=== PATIENT | male | born 1985 | race African-American/Black ===

== ENCOUNTER 2022-06-23 23:37 | Emergency (ER) | payer MEDICARE, MEDICAID, SELFPAY ==
[2022-06-23 23:39] VITALS: BP 112/79; PULSE 117; RESP 16; TEMP 37.4; O2SAT 99
[2022-06-24 00:31] LABS: Basophils Percent Auto 0.2 % (0.2-1.2); Eosinophils Percent Auto 0.2 % (0-4.4); Immature Granulocyte Absolute 0.05 K/mm3 (0.00-0.031); Immature Granulocyte Percent A 0.4 % (0-0.5); Lymphocytes Absolute Auto 2.26 K/mm3 (0.9-3.2); Lymphocytes Percent Auto 18.8 % (18.3-44.2); Mean Corpuscular HGB Conc 33.3 g/dl (32-36); Mean Corpuscular Hemoglobin 28.6 pg (26-34); Mean Corpuscular Volume 85.7 fl (80-100); Mean Platelet Volume 8.3 fl (7.4-10.4); Monocytes Percent Auto 7.9 % (2.6-8.5); Neutrophils Absolute Auto 8.7 K/mm3 (1.3-6.7); Neutrophils Percent Auto 72.5 % (45.5-73.1); Platelet Count Result 364 k/mm3 (150-375)
[2022-06-24 00:32] LABS: Acetaminophen < 10 ug/mL (10-30); Ethanol < 10 mg/dL (<10); Salicylate < 1.0 mg/dL (2-20)
[2022-06-24 00:33] LABS: Alanine Aminotransferase 20 U/L (6-50); Albumin Level 4.4 g/dL (3.5-5.1); Alkaline Phosphatase 67 U/L (38-126); Anion Gap 6 mmol/L (8-16); Aspartate Amino Transferase 32 U/L (17-59); Bilirubin,Total 0.9 mg/dL (0.2-1.3); Blood Urea Nitrogen 10 mg/dL (9-20); Calcium 8.9 mg/dL (8.4-10.2); Carbon Dioxide 29 mmol/L (22-30); Chloride 101 mmol/L (98-107); Estimated CRCL calculation 124 ml/min; Estimated Glomerular Filt Rate > 60; Glucose 132 mg/dL (65-110); Potassium 3.1 mmol/L (3.4-5.0); Sodium 136 mmol/L (137-145)
[2022-06-24 01:03] LABS: Influenza A QL RT-PCR Negative (Negative); Influenza B QL RT-PCR Negative (Negative); RSV RNA, RT-PCR Negative (Negative); SARS-CoV-2 RNA PCR Negative
[2022-06-24 01:30] LABS: Appearance Urine Clear (Clear); Bilirubin Urine 2+ (Negative); Blood Urine 2+ (Negative); Color Urine Yellow (Yellow); Glucose Urine UA Negative (Negative); Ketones Urine 3+ mg/dL (Negative); Leukocyte Esterase Ur Negative LEU/UL (Negative); Nitrate Urine Negative (Negative); Protein Urine 1+ mg/dL (Negative); Specific Grav Ur >= 1.030 (1.001-1.035); Urobilinogen Urine >=8.0 mg/dL (<2.0); pH Urine 5.5 (5.0-9.0)
[2022-06-24 01:33] LABS: Mucus Urine Heavy /lpf; RBC Urine 51-75 /hpf (0-2); Squamous Epithelial Cell Urine Rare /hpf (Few)
[2022-06-24 01:35] LABS: Add Urine Microscopic? YES
[2022-06-24 01:49] LABS: Amphetamine Screen Urine Negative (Negative); Barbiturate Screen Urine Negative (Negative); Benzodiazepines Screen Urine Negative (Negative); Cannabinoid Screen Urine Positive (Negative); Cocaine Screen Urine Positive (Negative); Methadone Screen Urine Negative (Negative); Opiate Screen Urine Negative (Negative); Phencyclidine Screen Urine Negative (Negative)
[2022-06-24 02:33] VITALS: BP 126/92; PULSE 112; RESP 14; TEMP 36.6; O2SAT 97
--- NOTE | 2022-06-24 03:27 | PC.NURSE ---
Per ERP pt. is medically clear.
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
[2022-06-24] MEDS: CEPHALEXIN 500 MG CAPSULE PO (05:17)
[2022-06-24] MEDS: POTASSIUM CHLORIDE 20 MEQ TABLET 40 MEQ PO (05:17)
[2022-06-24 07:15] VITALS: BP 138/102; PULSE 98; RESP 18; O2SAT 97
--- NOTE | 2022-06-24 08:21 | PC.NURSE ---
This RN informed by security that pt was walking out of building. He states that he attempted to get pt to stay but he states he wanted to go. Pt is voluntary and is not SI. Pt saw walking out towards bus stop.
== END 2022-06-24 08:23 | disposition home or self-care (01) ==
PROVIDERS: Physician Assistant; Emergency Provider Emergency Medicine
DX: F20.9 Schizophrenia, unspecified (principal); Z20.822 Contact with and (suspected) exposure to COVID-19; F31.9 Bipolar disorder, unspecified
CPT/HCPCS: 36415; 80053; 80307; 81001; 84443; 85025; 87637; 99283; 99284; A9270

== ENCOUNTER 2022-06-25 07:29 | Emergency (ER) | payer MEDICARE, MEDICAID, SELFPAY ==
[2022-06-25 07:32] VITALS: BP 121/73; PULSE 97; RESP 16; TEMP 36.7; O2SAT 99
[2022-06-25 08:19] LABS: Basophils Percent Auto 0.4 % (0.2-1.2); Eosinophils Percent Auto 0.4 % (0-4.4); Hemoglobin 14.1 g/dL (14.0-18.0); Immature Granulocyte Absolute 0.03 K/mm3 (0.00-0.031); Immature Granulocyte Percent A 0.4 % (0-0.5); Lymphocytes Absolute Auto 2.02 K/mm3 (0.9-3.2); Lymphocytes Percent Auto 23.9 % (18.3-44.2); Mean Corpuscular HGB Conc 33.6 g/dl (32-36); Mean Corpuscular Hemoglobin 28.9 pg (26-34); Mean Corpuscular Volume 86.1 fl (80-100); Mean Platelet Volume 8.1 fl (7.4-10.4); Monocytes Absolute Auto 0.6 K/mm3 (0.1-0.6); Monocytes Percent Auto 7.2 % (2.6-8.5); Neutrophils Absolute Auto 5.7 K/mm3 (1.3-6.7); Neutrophils Percent Auto 67.7 % (45.5-73.1); Platelet Count Result 337 k/mm3 (150-375); Red Blood Count 4.88 M/mm3 (4.6-6.20); White Blood Count 8.5 K/mm3 (4.5-10.0)
[2022-06-25 08:40] LABS: Appearance Urine Clear (Clear); Bacteria Urine None Seen /hpf; Bilirubin Urine 2+ (Negative); Blood Urine 2+ (Negative); Color Urine Dark Yellow (Yellow); Glucose Urine UA Negative (Negative); Ketones Urine 3+ mg/dL (Negative); Leukocyte Esterase Ur Negative LEU/UL (Negative); Nitrate Urine Negative (Negative); Protein Urine 1+ mg/dL (Negative); RBC Urine 21-50 /hpf (0-2); Squamous Epithelial Cell Urine None seen /hpf (Few); WBC Urine 0-5 /hpf; pH Urine 5.5 (5.0-9.0)
[2022-06-25 08:42] LABS: Alanine Aminotransferase 20 U/L (6-50); Albumin Level 4.5 g/dL (3.5-5.1); Alkaline Phosphatase 71 U/L (38-126); Anion Gap 9 mmol/L (8-16); Aspartate Amino Transferase 30 U/L (17-59); Bilirubin,Total 1.3 mg/dL (0.2-1.3); Blood Urea Nitrogen 16 mg/dL (9-20); Calcium 8.7 mg/dL (8.4-10.2); Carbon Dioxide 27 mmol/L (22-30); Chloride 106 mmol/L (98-107); Estimated CRCL calculation 124 ml/min; Estimated Glomerular Filt Rate > 60; Glucose 122 mg/dL (65-110); Potassium 3.8 mmol/L (3.4-5.0); Sodium 142 mmol/L (137-145)
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
[2022-06-25 08:56] LABS: Add Urine Microscopic? YES
[2022-06-25] MEDS: SODIUM CHLORIDE 0.9% IV 1,000 ML 999 ML IV CONT (09:00)
[2022-06-25 09:12] LABS: Thyroid Stimulating Hormone 0.708 uIU/mL (0.465-4.680)
[2022-06-25 09:36] LABS: Ethanol < 10 mg/dL (<10)
--- NOTE | 2022-06-25 10:20 | PC.NURSE ---
lab contacted about missing uds. states was having difficulty with their machine.
[2022-06-25 10:22] LABS: Influenza A QL RT-PCR Negative (Negative); Influenza B QL RT-PCR Negative (Negative); SARS-CoV-2 RNA PCR Negative
--- NOTE | 2022-06-25 10:30 | PC.NURSE ---
pharmacy contacted about ceftin. states still have to package med.
[2022-06-25 10:32] LABS: Barbiturate Screen Urine Negative (Negative); Benzodiazepines Screen Urine Negative (Negative)
[2022-06-25 10:36] LABS: Cannabinoid Screen Urine Positive (Negative); Cocaine Screen Urine Positive (Negative); Methadone Screen Urine Negative (Negative); Opiate Screen Urine Negative (Negative); Phencyclidine Screen Urine Negative (Negative)
--- NOTE | 2022-06-25 11:14 | PC.NURSE ---
Medications not given due to patient sleeping.
[2022-06-25] MEDS: CEFUROXIME AXETIL 250 MG TABLET 500 MG PO (12:58)
[2022-06-25] MEDS: TETANUS,DIPHTHERIA,AC PERTUSSIS ADULT (0.5 ML) BOOSTRIX IM (12:58)
[2022-06-25 13:00] VITALS: BP 125/82; PULSE 92; RESP 16; O2SAT 96
--- NOTE | 2022-06-25 13:28 | PC.NURSE ---
Spoke with Destini from [place] and she states Dr Valentin has accepted patient. She states she is to call back with room assignment. Provider made aware.
--- NOTE | 2022-06-25 13:32 | ECG_ITS ---
Measurements Intervals [place] Rate: 83 P: 59 [place]: 138 QRS: 71 QRSD: 90 T: 49 QT: 354 QTc: 417 Interpretive Statements SINUS RHYTHM MINIMAL Q WAVES- ANTEROLAT/INF LEADS BASELINE WANDER- V4 BORDERLINE ECG NO PREVIOUS ECG AVAILABLE FOR COMPARISON Electronically Signed On 06-25-2022 13:57:13 EQUAL OPPORTUNITY REPRESENTATIVE by Jc Phillips D.O.
[2022-06-25 15:44] LABS: Amphetamine Screen Urine Negative (Negative)
== END 2022-06-25 17:30 ==
PROVIDERS: Emergency Provider Emergency Medicine
DX: R45.851 Suicidal ideations (principal); R44.0 Auditory hallucinations; Z23 Encounter for immunization; S61.012A Laceration without foreign body of left thumb without damage to nail, initial encounter; Z20.822 Contact with and (suspected) exposure to COVID-19; W26.0XXA Contact with knife, initial encounter
CPT/HCPCS: 36415; 80053; 80307; 81001; 84443; 85025; 87636; 90471; 90714; 90715; 93005; 96360; 99285; A9270; J7030

== ENCOUNTER 2022-06-30 00:27 | Emergency (ER) | payer MEDICARE, MEDICAID, SELFPAY ==
[2022-06-30 00:33] VITALS: BP 138/99; PULSE 106; RESP 19; TEMP 36.9; O2SAT 98
[2022-06-30 01:34] VITALS: BP 141/87; PULSE 93; RESP 18; O2SAT 100
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
[2022-06-30] MEDS: CEPHALEXIN 500 MG CAPSULE PO (03:04)
[2022-06-30] MEDS: BACITRACIN OINTMENT 15 GM TUBE 1 APPLIC TOPICAL (03:04)
--- NOTE | 2022-06-30 03:13 | PC.NURSE ---
Bacitracin applied to bilateral thumbs and right middle finger. Gauze applied and wrapped with kerlix. Supplies given to pt so he can perform dressing changes at home.
--- NOTE | 2022-06-30 03:45 | PC.NURSE ---
Pt asked for cab voucher to take him to a penitentiary in [place]. Informed him that we can send him to the penitentiary, but it's not guaranteed that he will be able to get in tonight. Pt then states he wants to go to a store in [facility]. Informed him that he cannot use a cab voucher to go to a liquor store. Pt then asked to go to [facility] [place]. Informed pt that we cannot send him to another healthcare facility. Had pt wait in waiting room and if he thinks of an actual address he can safely go to, to let the front end software developer know. Pt verbalized understanding. Pt ambulated to waiting room with steady gait.
== END 2022-06-30 03:48 | disposition home or self-care (01) ==
PROVIDERS: Emergency Provider Emergency Medicine; PCP Family Medicine
DX: T23.012A Burn of unspecified degree of left thumb (nail), initial encounter (principal); T23.011A Burn of unspecified degree of right thumb (nail), initial encounter; T31.0 Burns involving less than 10% of body surface; X15.0XXA Contact with hot stove (kitchen), initial encounter; Z59.00 Homelessness unspecified
CPT/HCPCS: 99283; A4565; A9270

== ENCOUNTER 2024-07-15 14:01 | Emergency (ER) | payer MEDICARE, MEDICAID, SELFPAY ==
[2024-07-15 14:38] VITALS: BP 91/43; PULSE 88; RESP 16; TEMP 36.6; O2SAT 100
--- NOTE | 2024-07-15 15:01 | ECG_ITS ---
Test Date: 2024-07-15 15:08:35 Measurements Intervals [place] Rate: 84 P: 66 MO: 137 QRS: 74 QRSD: 79 T: 55 QT: 362 QTc: 428 Interpretive Statements SINUS RHYTHM No previous ECG available for comparison Electronically Signed On 07-16-2024 10:44:02 CDT by Gonzalez Holguin M.D.
--- OUTSIDE RECORDS SUMMARY | 2024-07-15 15:17 | XMS_ITS | Encounter Summary ---
Author Organization [facility] Address [address] [place] [address] Care Team Providers Care Orthopedic Physician Assistant Name Role Phone No, Physician Primary Care Provider [phone] Encounter Details Date Type Department Care Team (Late st Contact Info) Description 12/04/2011 Orders Only [facility] [place] Health Information Management [address] [place] [address] Scanning, Provider Social History Tobacco Use Types Packs/Day Years Used Date Smoking Tobacco: Never Assessed Sex and Gender Information Value Date Recorded Sex Assigned at Not on file Legal Sex Male 1:40 PM CDT Gender Identity Not on file Sexual Orientation Not on file documented as of this encounter Plan of Treatment Not on file documented as of this encounter Procedures Procedure Name Priority Date/Time Associated Diagnosis Comments SCAN - RADIOLOGY/IMAGING 12/04/2011 documented in this encounter Results * SCAN - RADIOLOGY/IMAGING (12/04/2011) Anatomical Region Laterality Modality Other us Provider Scanning Final Result documented in this encounter Visit Diagnoses Not on filedocumented in this encounter Additional Health Concerns Infection Onset Date Last Indicated Resolved Time COVID19 03/20/2022 03/20/2022 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
--- OUTSIDE RECORDS SUMMARY | 2024-07-15 15:17 | XMS_ITS | Patient Health Record ---
Author Organization Formerly [facility], [facility] Address [address] [place] [address] Care Team Providers Care Batch Unit Treater Name Role Phone Jessydimitriosjorge Claire Primary Care Provider [phone] Heena Lott Unavailable [phone] Hanna Belcher Unavailable [phone] Joaquin Singletary Unavailable [phone] Luna Wooten Unavailable [phone] Shawnee Clarke Unavailable [phone] Allergies Allergen (clinical drug ingredient) Drug/Non Drug Allergy documented on EMR Reaction Allergy Type Onset Date Status Substance with sulfonamide structure and antibacterial mechanism of action (substance) Sulfa (uncoded) rash Allergy Active Sulfur hives, swelling Drug Allergy A ctive Reason For Referral No Information Medications Medication SIG (Take, Route, Frequency, Duration) Notes Start Date End Date Status Abilify 15 MG 1 tablet Orally Once a day for 30 days Active Benztropine Mesylate 1 mg TAKE 1 TABLET BY MOUTH AT BEDTIME for 30 days Active Nicotine Polacrilex 4 MG 1 piece chew fo r 30 minutes as needed Mouth/Throat every 8 hrs Active Social History Tobacco Use: Social History Observation Description Date Details (start date - stop date) Current Smoker NA - NA Sex Assigned At : Social History Observation Description Sex Assigned At Male Dont use, Tobacco Use/Smoking Question Answer Notes Are you a current smoker Are you a current smoker Alcohol Screen (Audit-C) Question Answer Notes Did you have a drink containing alcohol in the p ast year? Yes PRAPARE Question Answer Notes Date Completed/Updated: 12/04/2023 What is your current housing situation? I have h ousing Are you worried about losing your housing? No What is the highest level of school that you have finished? Less than a high school degree 8th Grade What is your current work situation? Oth erwise unemployed but not seeking work (ex. student, retired, disabled, unpaid primary property caretaker) In the past year, have you o r any family members you live with been unable to get any of the following when it was really needed? Check all that apply I do not have problems meeting my needs Has lack of transportation k ept you from medical appointments, meetings, work or from getting things needed for daily living? No How often do you see or talk to people that you care about and feel close to? (For example: talking to friends on the phone, visiting friends or family, going to hindu or club meetings) 3 to 5 times a week How stressed are you? Stress is when someone feels tense, nervous, anxious, or can\t sleep at night because their mind is troubled A little bit In the past year have you sp ent more than 2 nights in a row in a residential, care home, half-way center, or juvenile correctional facility? No Are you a refugee? No What country are you from? [place] Do you feel physically and e motionally safe where you currently live? Yes In the past year, have you b een afraid of your partner or ex-partner? No PRAPARE Score: 6 Tobacco Control (Standard) Question Answer Notes Tobacco use: Current every day smoker Additional Findings: Tobacco user e-ciga rette,Light cigarette smoker (1-9 cigs/day) Section Notes: pt states he has been clean for 11 years. pt states he has been clean for 11 years. pt states he has been clean for 11 years. pt states he has been clean for 11 years. pt states he has been clean for 11 years. pt states he has been clean for 11 years. pt states he has been clean for 11 years. pt states he has been clean for 11 years. pt states he has been clean for 11 years. pt states he has been clean for 11 years. pt states he has been clean for 11 years. pt states he has been clean for 11 years. pt states he has been clean for 11 years. pt states he has been clean for 11 years. pt states he has been clean for 11 years. pt states he has been clean for 11 years. Problems Problem Type SNOMED Code ICD Code Onset Dates Problem Status W/U Status Risk Notes Problem Vitamin D deficiency (07259472) Vitamin D deficiency, unspecified (E55.9) Active confirmed Problem Tobacco user (306405338) Nicotine dependence, unspecified, uncomplicated (F17.200) Active confirmed Problem Anxiety (55324284) Anxiety (F41.9) Active confi rmed Problem Schizoaffective disorder (85021623) Schizoaffective disorder (F25.9) Active confirmed Problem Tobacco use (006096077) Tobacco use disorder (F17.200) Active confirmed Vital Signs Heart Rate 73 /min 12/05/2023 Respiratory Rate 16 /min 12/05/2023 Blood pressure diastolic 82 mm Hg 12/05/2023 Oximetry 98 % 12/05/2023 Height 69 in 12/05/2023 Blood pressure systolic 122 mm Hg 12/05/2023 Weight 197 lb 2 oz lbs 12/05/2023 BMI 29.11 kg/m2 12/05/2023 Encounters Encounter Location Date Provider Diagnosis Formerly [facility] [place] [address] 12/09/2023 Hanna Belcher Routine physical examination Z00.[address] [place] [address] 10/11/2023 Luna Wooten Schizoaffective disorder F25.9 Formerly [facility] [place] [address] 11/06/2023 Joaquin Singletary Routine physical examination Z00.00 ; Overweight E66.3 ; Nutritional counseling Z71.3 and Nicotine dependence, unspecified, uncomplicated F17.200 [facility] [address] [address] 11/06/2023 Shawnee Clarke [facility] [address] [facility] [place] [address] 12/04/2023 Joaquin Singletary Closed head injury, initial encounter S09.90XA ; Overweight (BMI 25.0-29.9) E66.3 ; Nutritional counseling Z71.3 and Nicotine dependence, unspecified, uncomplicated F17.200 [facility] [address] [place] [address] 12/04/2023 Shawnee Clarke [address] [place] [address] 12/05/2023 Hanna Belcher Routine physical examination Z00.00 ; Overweight (BMI 25.0-29.9) E66.3 and Tobacco use disorder F17.200 [facility] [address] [facility] [place] [address] 12/06/2023 Hanna Belcher Routine physical examination Z00.00 Assessments Encounter Date Diagnosis (ICD Code) Assessment Notes Treatment Notes Treatment Clinical Notes Section Notes 10/11/2023 Schizoaffective disorder (ICD-10 - F25.9) Continue current medications. Continue services as scheduled. Labs completed recently. May self-administer medications or be administered own oral medications per [place] protocols. Provided informed consent with understanding of side effects, adverse effects, risks and benefits as well as alternative treatments as previously discussed and with the above recommended medications & other aspects of the treatment program. Agrees to return sooner if symptoms worsen or suicidal or homicidal ideations occur. 11/06/2023 Overweight (ICD-10 - E66.3) 11/06/2023 Routine physical examination (ICD-10 - Z00.00) No issues or concerns at this time, continue current treatments, f/u in 6 months. 12/04/2023 Overweight (BMI 25.0-29.9) (ICD-10 - E66.3) 12/04/2023 Closed head injury, initial encounter (ICD-10 - S09.90XA) Follow up if any further symptoms arise. 12/05/2023 Routine physical examination (ICD-10 - Z00.00) Continue CRU protocol. Encouraged regular f/u with PCP for recommended physicals and screenings. 12/05/2023 Overweight (BMI 25.0-29.9) (ICD-10 - E66.3) 12/06/2023 Routine physical examination (ICD-10 - Z00.00) 12/09/2023 Routine physical examination (ICD-10 - Z00.00) 12/05/2023 Tobacco use disorder (ICD-10 - F17.200) 12/04/2023 Nutritional counseling (ICD-10 - Z71.3) 11/06/2023 Nutritional counseling (ICD-10 - Z71.3) 12/04/2023 Nicotine dependence, unspecified, uncomplicated (ICD-10 - F17.200) 11/06/2023 Nicotine dependence, unspecified, uncomplicated (ICD-10 - F17.200) 11/06/2023 Other Provided case management services to address social determinants of health needs and reduce barriers to health care services. 12/04/2023 Other Provided case management services to address social determinants of health needs and reduce barriers to health care services. Plan Of Treatment Pending Test Test Name Order Date Xray : Hip, left 07/31/2018 Xray : LS Spine 07/31/2018 Insurance Providers Payer Name Payer Address Payer Phone Subscriber Number Group Number Insured Name Patient Relationship to Insured Coverage Start Date Coverage End Date [employer] [address] [place] [address] [id number] Jaden Calderón Self - patient is the insured 3 3 MEDICAID [address] [place] [address] [id number] Jaden Calderón Self - patient is the insured 9 3 Medications Administered Medication Instructions Date of Administration Dosage Notes Tejinder Dale 07/25/2017 400 mg [facility] Medical (General) History Medical History History ICD Code Schizophrenia Surgical History Surgery Date(Month/Year) hemmoroids 2014 hemorrhoidectomy 2014 Hospitalization History Reason Date(Month/Year) [facility] 2018 mental health 2022 [facility]
--- OUTSIDE RECORDS SUMMARY | 2024-07-15 15:17 | XMS_ITS | CONTINUITY OF CARE DOCUMENT ---
Author Name lawrence bravo Address Unknown Organization [facility] Address [address] [place] [address] Phone [phone] Care Team Providers Care Enamel Sprayer Name Role Phone Carlos Oquendo MD Unavailable Carlos Oquendo MD Unavailable [phone] INSURANCE PROVIDERS Payer name Policy type / Coverage type Grayson red republican [employer] Medicaid 1 [id number] [place] MED[place]ARE Medicare [id number]
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
--- OUTSIDE RECORDS SUMMARY | 2024-07-15 15:17 | XMS_ITS | Referral Summary ---
Author Organization [facility] Address [address] [place] [address] Care Team Providers Care Authorizer Name Role Phone No, Physician Primary Care Provider [phone] Allergies Active Allergy Reactions Criticality Noted Date [...] interested in rehab or substance use resources. -[place] for substance use cessation -Rehab and other [...] on the patient and his wellbeing. Offered assisted to patient but he declined. He did not have any evidence of AVH/RTIS. Did not endorse SI/HI. He is future planning, has history of help seeking and self preservation, and has no thought disorder. He is being discharged to a detention with resources for substance use and grief counseling. -Monitor off psychotropic medications -PRN Zyprexa -Legal: Voluntary - Discharge to detention Resolved Problems Problem Noted Date Diagnosed Date Resolved Date Schizophrenia, chronic condition 07/18/2022 07/19/2022 Social History Tobacco Use Types Packs/Day Years [...] often do you attend chur ch or anglican services? Never 07/19/2022 Do you belong to any clubs o r organizations such as restorationism groups, unions, fraternal or athletic groups, or [...] medical care, and heating? Somewhat hard 07/19/2022 [facility] - Occupational Stress Questionnaire Answer Date Recorded [...] place to sleep or slept in a detention (including now)? Yes 07/19/2022 Personal Safety Answer [...] on file Sexual Orientation Not on file Last Filed Vital Signs Vital Sign Reading [...] Mass Index 29.53 09/14/2023 12:42 PM CDT Functional Status * Are you deaf or do you have serious difficulty hearing? Answer Date of Assessment Author No 07/19/2022 12:52 PM CDT Aissatou Magdaleno MSW * Are you blind or do you have serious difficulty seeing, even when wearing glasses? Answer Date of Assessment Author No 07/19/2022 12:52 PM CDT Aissatou Magdaleno MSW * Do you have serious difficulty walking or climbing stairs? Answer Date of Assessment Author No 07/19/2022 12:52 PM CDT Aissatou Magdaleno MSW * Do you have serious difficulty dressing or bathing? Answer Date of Assessment Author No 07/19/2022 12:52 PM CDT Aissatou Magdaleno MSW * Because of a physical, mental, or emotional condition, do you have serious difficulty doing errandsalone such as visiting the doctor? Answer Date of Assessment Author No 07/19/2022 12:52 PM CDT Aissatou Magdaleno MSW Mental Status * Because of a physical, mental, or emotional condition, do you have serious difficulty concentrating, remembering, or making decisions? (5 years old or older) Answer Entry Date Author Yes 07/19/2022 12:52 PM CDAissatou Lopez MSW Plan of Treatment Not on file Insurance IDPA CIGNA MEDICARE ADV MEDICARE IDPA IDNH CIGNA MEDICARE ADV Advance Directives For more information, please contact: [phone] * Full Code (Latest Code Status on File) Date Activated Date Inactivated Comments 07/19/2022 4:05 AM 07/19/2022 6:11 PM Care Teams Authorizer Relationship Specialty Start Date End Date No, Physician PCP - General 10/02/17
--- OUTSIDE RECORDS SUMMARY | 2024-07-15 15:17 | XMS_ITS ---
Author Organization [facility] Address [address] [place] [address] Care Team Providers Care Cartoon Animator Name Role Phone Claire Chatterjee Primary Care Provider [phone] Heena Lott Unavailable [phone] Luna Wooten Unavailable [phone] REASON FOR VISIT 2 month follow up Social History Sex Assigned At : Social History Observation Description Sex Assigned At Male Encounters Encounter Location Date Provider Diagnosis [address] [place] [address] 12/12/2023 Luna Wooten Plan Of Treatment No Information Progress Notes * Jaden CALDERÓNDOB: [birth year] (39 yo M)Acc No.[id number]:12/12/2023 UNLOCKED PROGRESS NOTE Patient: Jaden GARCIA Provider: Luis Wooten DNP, PMHNP-KONSTANTIN, BONDING MACHINE SETTER :1985 A ge:38 Y S ex:Male Date:12/12/2023 Phone: Address:[address] [place], [address], [place], [place] Pcp:Claire Chatterjee Subjective: * Chief Complaints: * 1 . 2 month follow up. * Medical History: Objective: * Vitals: Assessment: Plan: * Treatment: * * Electronic signature of Sandrine Wooten on 07/15/2024 at 03:17 PM CDT Sign off status: Pending * Provider: Luis Wooten DNP, PMHNP-BC, BONDING MACHINE SETTER Date: 0 12/12/2023 Generated for Printing/Faxing/eTransmitting on: 0 07/15/2024 03:17 PM CDT
--- OUTSIDE RECORDS SUMMARY | 2024-07-15 15:17 | XMS_ITS | Clinical Summary ---
Author Organization [facility] Address [facility] [place] [address] Care Team Providers Care Rip Saw Operator Name Role Phone None, Provider MD Primary Care Provider Unavaila ble Allergies Active Allergy Reactions Criticality Noted Date Comments Sulfasalazine Rash Low 12/10/2022 Medications risperiDONE (RISPERDAL) 1 MG tablet Take 1 tablet (1 mg total) by mouth 2 (two) times daily. Active ARIPiprazole (ABILIFY) 2 MG tablet Take 1 tablet (2 mg total) by mouth daily. Active Social History Tobacco Use Types Packs/Day Years Used Date Smoking Tobacco: Never Smokeless Tobacco: Never Tobacco Cessation:Counseling Given: Not Answered Alcohol Use Standard Drinks/Week Comments Not Currently 0 (1 standard drink = 0.6 oz pur e alcohol) Sex and Gender Information Value Date Recorded Sex Assigned at Not on file Legal Sex Male 8:48 AM CDT Gender Identity Not on file Sexual Orientation Not on file Last Filed Vital Signs Vital Sign Reading Time Taken Comments Blood Pressure 120/75 12/10/2022 8:50 AM CDT Pulse 103 12/10/2022 8:50 AM CDT Temperature 37 C (98.6 F) 12/10/2022 8:50 AM CDT Respiratory Rate 18 12/10/2022 8:50 AM CDT Oxygen Saturation 94% 12/10/2022 8:50 AM CDT Inhaled Oxygen Concentration - - Weight 90.3 kg (199 lb 1.2 oz) 12/10/2022 8:50 A M CDT Height 175.3 cm (5' 9 ) 12/10/2022 8:50 AM CDT Body Mass Index 29.4 12/10/2022 8:50 AM CDT Plan of Treatment Health Maintenance Due Date Last Done Comments Annual Physical 1988 PHQ-2 (Physician [place]) 1997 Hepatitis B Vaccines (4 of 4 - 4-dose series) 04/10/2001 03/27/2001, 02/13/2001, 12/27/1995 Hepatitis C 2003 COVID-19 Vaccine (4 - season) 2023 02/21/2021, 06/14/2020, 05/17/2020 Influenza Adult (#1) 2024 02/08/2022, 01/25/20 21 PHQ-2 (Physician [place]) 04/22/2024 DTaP, Tdap and Td Vaccines (6 - Td or Tdap) 06/25/2032 06/25/2022, 01/13/1988, 08/27/1986, Additional history exists HPV Vaccines Aged Out No longer eligi ble based on patient's age to complete this topic Meningococcal B Vaccine Aged Out No l onger eligible based on patient's age to complete this topic Meningococcal Vaccine Aged Out No trudy delvin eligible based on patient's age to complete this topic Pneumococcal Vaccine: Pediatrics (0 to 5 Years) and At-Risk Patients (6 to 64 Years) Aged Out No longer eligible based on patient's age to complete this topic RSV Immunizations Under 20 Months Aged Out No longer eligible based on patient's age to complete this topic Insurance MEDICAID Care Teams Rip Saw Operator Relationship Specialty Start Date End Date None, Provider, PCP - General UNKNOWN PHYSICIAN SPECIALTY 12/10/22
--- OUTSIDE RECORDS SUMMARY | 2024-07-15 15:18 | XMS_ITS ---
[facility] Organization [facility] Address [address] [place] [address] Care Team Providers Care Sheet Writer Name Role Phone Claire Chatterjee Primary Care Provider [phone] Heena Lott Unavailable [phone] Hanna Belcher Unavailable [phone] REASON FOR VISIT on CRU, TB test Social History Sex Assigned At : Social History Observation Description Sex Assigned At Male Encounters Encounter Location Date Provider Diagnosis [place] [address] [place] [address] 12/09/2023 Hanna Belcher Routine physical examination Z00.00 Assessments Encounter Date Diagnosis (ICD Code) Assessment Notes Treatment Notes Treatment Clinical Notes Section Notes 12/09/2023 Routine physical examination (ICD-10 - Z00.00) Plan Of Treatment No Information Progress Notes * Jaden CALDERÓNDOB: [birth year] (39 yo M)Acc No.[id number]:12/09/2023 UNLOCKED PROGRESS NOTE DNS Patient: Jaden GARCIA Provider: Sasha Belcher, MSN, SALES REPRESENTATIVE [employer], MOTOR TESTER-C :1985 A ge:38 Y S ex:Male Date:12/09/2023 Phone: Address:[address], [address], [place], [place] Pcp:Claire Chatterjee Check In:08:15 AM INSTRUCTIONAL CONSULTANT Subjective: * Chief Complaints: * 1 . on CRU, TB test. * Medical History: Objective: * Vitals: Assessment: * Assessment: 1. R outine physical examination - Z00.00 Plan: * Treatment: * Procedure Codes: 8 6480 TB TEST, CELL IMMUN MEASURE * * Electronic signature of Anat Belcher APRN, [id number] on 07/15/2024 at 03:17 PM CDT Sign off status: Pending * Provider: SARAH Mesa, SALES REPRESENTATIVE [employer], MOTOR TESTER-C Date: 0 12/09/2023 Generated for Martin Us/Yolie on: 0 07/15/2024 03:17 PM CDT
--- NOTE | 2024-07-15 15:20 | ED_ITS ---
HPI - Psych General Chief Complaint: Psychiatric Symptoms <Dhruv Hernandes MD - Last Filed: 07/15/24 20:44> Stated Complaint: Voices in head, out of meds, +ETOH/Fentanyl use <Dhruv Hernandes MD - Last Filed: 07/15/24 20:44> Time Seen by Provider: 07/15/24 14:59 <Dhruv Hernandes MD - Last Filed: 07/15/24 20:44> Source: patient <Dhruv Hernandes MD - Last Filed: 07/15/24 20:44> Mode of arrival: EMS <Dhruv Hernandes MD - Last Filed: 07/15/24 20:44> Limitations: no limitations <Dhruv Hernandes MD - Last Filed: 07/15/24 20:44> History of Present Illness HPI Narrative: 39-year-old with a history of schizophrenia here with a complaint of having suicidal and homicidal ideation for past few weeks. Patient states that he has been off medication for past few months. His last admission to psychiatric facility was 5 months ago. He is presently homeless. He denies alcohol use however he uses ice, cocaine on a regular basis and his last use was 3 days ago. He presently has no medical complaints <Dhruv Hernandes MD - Last Filed: 07/15/24 20:44> Related Data Allergies/Adverse Reactions: Allergies Allergy/AdvReac Type Severity Reaction Status Date / Time Sulfa (Sulfonamide Allergy Rash Verified 07/15/24 14:05 Antibiotics) <Dhruv Hernandes MD - Last Filed: 07/15/24 20:44> Review of Systems 2 Review of Systems: All systems reviewed & are unremarkable except as noted in HPI and below <Dhruv Hernandes MD - Last Filed: 07/15/24 20:44> Constitutional: Constitutional: Reports no additional constitutional complaints <Dhruv Hernandes MD - Last Filed: 07/15/24 20:44> Eyes: Eyes: Reports no additional eye complaints <Dhruv Hernandes MD - Last Filed: 07/15/24 20:44> ENT: Reports system reviewed and no additional complaints, except as documented <Dhruv Hernandes MD - Last Filed: 07/15/24 20:44> Cardiovascular: Cardiovascular: Reports no additional cardiovascular complaints <Dhruv Hernandes MD - Last Filed: 07/15/24 20:44> Respiratory: Respiratory: Reports no additional respiratory complaints < Dhruv Hernandes MD - Last Filed: 07/15/24 20:44> Gastrointestinal: Gastrointestinal: Reports no additional gastrointestinal complaints <Dhruv Hernandes MD - Last Filed: 07/15/24 20:44> Musculoskeletal: Musculoskeletal: Reports no additional musculoskeletal complaints <Dhruv Hernandes MD - Last Filed: 07/15/24 20:44> Integumentary/Breasts: Skin/Breast: Reports system reviewed and no additional complaints, except as docu <Dhruv Hernandes MD - Last Filed: 07/15/24 20:44> Neurologic: Reports system reviewed and no additional complaints, except as documented <Dhruv Hernandes MD - Last Filed: 07/15/24 20:44> Psychiatric: Psychiatric: Reports as per HPI <Dhruv Hernandes MD - Last Filed: 07/15/24 20:44> PMFSH Past Medical History Medical History: Medical History History of schizophrenia <Dhruv Hernandes MD - Last Filed: 07/15/24 20:44> Surgical History Surgical History: Surgical History No pertinent past surgical history <Dhruv Hernandes MD - Last Filed: 07/15/24 20:44> Social History Social History: Social History Smoking status: Never smoker Alcohol intake: never Substance use: current Substance use type: crack/cocaine and opiates <Dhruv Hernandes MD - Last Filed: 07/15/24 20:44> Exam 2 Narrative: GENERAL: Well-appearing, well-nourished, and in no acute distress. HEAD: Normocephalic, atraumatic. Has a old healing scar on the forehead EYES: PERRLA and EOMI. ENT: Nares clear, no rhinorrhea or epistaxis. Mucous membranes moist. NECK: Supple. CHEST: Clear to auscultation. No respiratory distress. HEART: Regular rate and rhythm. No murmur heard. Normal peripheral pulses. ABDOMEN: Soft, nontender, nondistended, normal active bowel sounds. EXTREMITIES: Normal range of motion. No edema. SKIN: Warm, dry, no rash. NEURO: No focal deficits. Alert and oriented x3. PSYCH: Normal mood . <Dhruv Hernandes MD - Last Filed: 07/15/24 20:44> Course Course Emergency Course: I did review lab work, EKG findings. He is medically stable for psychiatric placement. <Dhruv Hernandes MD - Last Filed: 07/15/24 20:44> I did review lab work, EKG findings. He is medically stable for psychiatric placement. Patient signed out to me at 22:00 on 07/15/24. Voluntary psych. Has not required meds so far. Pending acceptance and placement. Informed he has been accepted at [facility]. EMS transportation arranged. <Keisha Carrasquillo MD - Last Filed: 07/16/24 09:46> Vital Signs Vital signs: Vital Signs Temperature 97.9 F 07/15/24 14:38 Pulse Rate 88 07/15/24 14:38 Respiratory Rate 16 07/15/24 14:38 Blood Pressure 91/43 L 07/15/24 14:38 Pulse Oximetry 100 07/15/24 14:38 Oxygen Delivery Room Air 07/15/24 14:38 Temperature 98.2 F 07/15/24 23:06 Pulse Rate 80 07/15/24 23:06 Respiratory Rate 18 07/15/24 23:06 Blood Pressure 117/64 07/15/24 23:06 Pulse Oximetry 100 07/15/24 23:06 Oxygen Delivery Room Air 07/15/24 14:38 <Dhruv Hernandes MD - Last Filed: 07/15/24 20:44> Vital Signs Temperature 97.9 F 07/15/24 14:38 Pulse Rate 88 07/15/24 14:38 Respiratory Rate 16 07/15/24 14:38 Blood Pressure 91/43 L 07/15/24 14:38 Pulse Oximetry 100 07/15/24 14:38 Oxygen Delivery Room Air 07/15/24 14:38 Temperature 98.2 F 07/15/24 23:06 Pulse Rate 80 07/15/24 23:06 Respiratory Rate 18 07/15/24 23:06 Blood Pressure 117/64 07/15/24 23:06 Pulse Oximetry 100 07/15/24 23:06 Oxygen Delivery Room Air 07/15/24 14:38 <Keisha Carrasquillo MD - Last Filed: 07/16/24 09:46> MDM - Psych Lab Data Attestation: I reviewed the patient's lab results. <Dhruv Hernandes MD - Last Filed: 07/15/24 20:44> Result diagrams: 07/15/24 15:24 07/15/24 15:23 <Dhruv Hernandes MD - Last Filed: 07/15/24 20:44> Labs: Lab Results 07/15/24 07/15/24 07/15/24 Range/Units 15:23 15:24 15:24 WBC 9.3 (4.5-10.0) K/mm3 RBC 4.36 L (4.6-6.20) M/mm3 Hgb 12.3 L (14.0-18.0) g/dL Hct 37.8 L (42.0-52.0) % MCV 86.7 (80-100) fl MCH 28.2 (26-34) pg MCHC 32.5 (32-36) g/dl RDW 13.6 (11.5-14.5) % Plt Count 302 (150-375) k/mm3 MPV 8.4 (7.4-10.4) fl Immature Gran % (Auto) 0.2 (0-0.5) % Neut % (Auto) 82.1 H (45.5-73.1) % Lymph % (Auto) 10.4 L (18.3-44.2) % Scott % (Auto) 6.9 (2.6-8.5) % Eos % (Auto) 0.1 (0-4.4) % Baso % (Auto) 0.3 (0.2-1.2) % Lymph # (Auto) 0.97 (0.9-3.2) K/mm3 Scott # (Auto) 0.6 (0.1-0.6) K/mm3 Eos # (Auto) 0.0 (0-0.3) K/mm3 Baso # (Auto) 0.0 (0.0-0.1) K/mm3 Abs Immat Gran (auto) 0.02 (0.00-0.031) K/mm3 Absolute Neuts (auto) 7.7 H (1.3-6.7) K/mm3 Absolute Nucleated RBC 0.000 (0.0-0.012) K/mm3 Nucleated RBC % 0.0 (0.0-0.2) % Sodium 142 (137-145) mmol/L Potassium 4.0 (3.4-5.0) mmol/L Chloride 105 (98-107) mmol/L Carbon Dioxide 30 (22-30) mmol/L Anion Gap 7 (4-12) mmol/L BUN 19 (9-20) mg/dL Creatinine 0.92 (0.7-1.3) mg/dL Estim Creat Clear Calc 95 ml/min Estimated GFR > 60 (59 - ) Glucose 93 (65-110) mg/dL Calcium 8.9 (8.4-10.2) mg/dL Total Bilirubin 0.7 (0.2-1.3) mg/dL AST 23 (17-59) U/L ALT 17 (6-50) U/L Alkaline Phosphatase 59 (38-126) U/L Total Protein 7.0 (6.3-8.2) g/dL Albumin 4.1 (3.5-5.1) g/dL TSH (Reflex) 0.554 (0.465-4.68) uIU/mL Urine Color Yellow (Yellow) Urine Appearance Clear (Clear) Urine pH 5.5 (5.0-9.0) Ur Specific [place] 1.033 (1.001-1.035) Urine Protein 1+ H (Negative) mg/dL Urine Glucose (UA) Negative (Negative) mg/dL Urine Ketones Trace H (Negative) mg/dL Ur Blood (Man) Negative (Negative) Urine Nitrate Negative (Negative) Urine Bilirubin Negative (Negative) Urine Urobilinogen 1.0 (<2.0) mg/dL Add Ur Microanalysis Reviewed Leukocyte Esterase Rfl Negative (Negative) GISSELL/UL Urine RBC 21-50 H (0-2) /hpf Urine WBC 0-5 (0-3) /hpf Ur Squamous Epith Cells None seen (Few) /hpf Urine Bacteria None seen /hpf Urine Casts 11-20 Hyaline Casts 3-4 H (None) /lpf Urine Mucus Present /lpf Salicylates Cancelled < 1.0 L Urine Opiates Screen Negative (Negative) Urine Methadone Screen Negative (Negative) Acetaminophen Cancelled Ur Barbiturates Screen Negative (Negative) Ur Phencyclidine Scrn Negative (Negative) Ur Amphetamine Screen Negative (Negative) U Benzodiazepines Scrn Negative (Negative) Urine Cocaine Screen Positive A (Negative) U Cannabinoids Screen Positive A (Negative) Ethyl Alcohol (<10) mg/dL Influenza A (RT-PCR) (Negative) Influenza B (RT-PCR) (Negative) RSV (RT-PCR) (Negative) SARS-CoV-2 RNA (RT-PCR) (Negative) 07/15/24 Range/Units 15:24 WBC (4.5-10.0) K/mm3 RBC (4.6-6.20) M/mm3 Hgb (14.0-18.0) g/dL Hct (42.0-52.0) % MCV (80-100) fl MCH (26-34) pg MCHC (32-36) g/dl RDW (11.5-14.5) % Plt Count (150-375) k/mm3 MPV (7.4-10.4) fl Immature Gran % (Auto) (0-0.5) % Neut % (Auto) (45.5-73.1) % Lymph % (Auto) (18.3-44.2) % Scott % (Auto) (2.6-8.5) % Eos % (Auto) (0-4.4) % Baso % (Auto) (0.2-1.2) % Lymph # (Auto) (0.9-3.2) K/mm3 Scott # (Auto) (0.1-0.6) K/mm3 Eos # (Auto) (0-0.3) K/mm3 Baso # (Auto) (0.0-0.1) K/mm3 Abs Immat Gran (auto) (0.00-0.031) K/mm3 Absolute Neuts (auto) (1.3-6.7) K/mm3 Absolute Nucleated RBC (0.0-0.012) K/mm3 Nucleated RBC % (0.0-0.2) % Sodium (137-145) mmol/L Potassium (3.4-5.0) mmol/L Chloride (98-107) mmol/L Carbon Dioxide (22-30) mmol/L Anion Gap (4-12) mmol/L BUN (9-20) mg/dL Creatinine (0.7-1.3) mg/dL Estim Creat Clear Calc ml/min Estimated GFR (59 - ) Glucose (65-110) mg/dL Calcium (8.4-10.2) mg/dL Total Bilirubin (0.2-1.3) mg/dL AST (17-59) U/L ALT (6-50) U/L Alkaline Phosphatase (38-126) U/L Total Protein (6.3-8.2) g/dL Albumin (3.5-5.1) g/dL TSH (Reflex) (0.465-4.68) uIU/mL Urine Color (Yellow) Urine Appearance (Clear) Urine pH (5.0-9.0) Ur Specific [place] (1.001-1.035) Urine Protein (Negative) mg/dL Urine Glucose (UA) (Negative) mg/dL Urine Ketones (Negative) mg/dL Ur Blood (Man) (Negative) Urine Nitrate (Negative) Urine Bilirubin (Negative) Urine Urobilinogen (<2.0) mg/dL Add Ur Microanalysis Leukocyte Esterase Rfl (Negative) GISSELL/UL Urine RBC (0-2) /hpf Urine WBC (0-3) /hpf Ur Squamous Epith Cells (Few) /hpf Urine Bacteria /hpf Urine Casts Hyaline Casts (None) /lpf Urine Mucus /lpf Salicylates Urine Opiates Screen (Negative) Urine Methadone Screen (Negative) Acetaminophen < 10 L Ur Barbiturates Screen (Negative) Ur Phencyclidine Scrn (Negative) Ur Amphetamine Screen (Negative) U Benzodiazepines Scrn (Negative) Urine Cocaine Screen (Negative) U Cannabinoids Screen (Negative) Ethyl Alcohol < 10 (<10) mg/dL Influenza A (RT-PCR) Negative (Negative) Influenza B (RT-PCR) Negative (Negative) RSV (RT-PCR) Negative (Negative) SARS-CoV-2 RNA (RT-PCR) Negative (Negative) <Dhruv Hernandes MD - Last Filed: 07/15/24 20:44> Lab Results 07/15/24 07/15/24 07/15/24 Range/Units 15:23 15:24 15:24 WBC 9.3 (4.5-10.0) K/mm3 RBC 4.36 L (4.6-6.20) M/mm3 Hgb 12.3 L (14.0-18.0) g/dL Hct 37.8 L (42.0-52.0) % MCV 86.7 (80-100) fl MCH 28.2 (26-34) pg MCHC 32.5 (32-36) g/dl RDW 13.6 (11.5-14.5) % Plt Count 302 (150-375) k/mm3 MPV 8.4 (7.4-10.4) fl Immature Gran % (Auto) 0.2 (0-0.5) % Neut % (Auto) 82.1 H (45.5-73.1) % Lymph % (Auto) 10.4 L (18.3-44.2) % Scott % (Auto) 6.9 (2.6-8.5) % Eos % (Auto) 0.1 (0-4.4) % Baso % (Auto) 0.3 (0.2-1.2) % Lymph # (Auto) 0.97 (0.9-3.2) K/mm3 Scott # (Auto) 0.6 (0.1-0.6) K/mm3 Eos # (Auto) 0.0 (0-0.3) K/mm3 Baso # (Auto) 0.0 (0.0-0.1) K/mm3 Abs Immat Gran (auto) 0.02 (0.00-0.031) K/mm3 Absolute Neuts (auto) 7.7 H (1.3-6.7) K/mm3 Absolute Nucleated RBC 0.000 (0.0-0.012) K/mm3 Nucleated RBC % 0.0 (0.0-0.2) % Sodium 142 (137-145) mmol/L Potassium 4.0 (3.4-5.0) mmol/L Chloride 105 (98-107) mmol/L Carbon Dioxide 30 (22-30) mmol/L Anion Gap 7 (4-12) mmol/L BUN 19 (9-20) mg/dL Creatinine 0.92 (0.7-1.3) mg/dL Estim Creat Clear Calc 95 ml/min Estimated GFR > 60 (59 - ) Glucose 93 (65-110) mg/dL Calcium 8.9 (8.4-10.2) mg/dL Total Bilirubin 0.7 (0.2-1.3) mg/dL AST 23 (17-59) U/L ALT 17 (6-50) U/L Alkaline Phosphatase 59 (38-126) U/L Total Protein 7.0 (6.3-8.2) g/dL Albumin 4.1 (3.5-5.1) g/dL TSH (Reflex) 0.554 (0.465-4.68) uIU/mL Urine Color Yellow (Yellow) Urine Appearance Clear (Clear) Urine pH 5.5 (5.0-9.0) Ur Specific [place] 1.033 (1.001-1.035) Urine Protein 1+ H (Negative) mg/dL Urine Glucose (UA) Negative (Negative) mg/dL Urine Ketones Trace H (Negative) mg/dL Ur Blood (Man) Negative (Negative) Urine Nitrate Negative (Negative) Urine Bilirubin Negative (Negative) Urine Urobilinogen 1.0 (<2.0) mg/dL Add Ur Microanalysis Reviewed Leukocyte Esterase Rfl Negative (Negative) GISSELL/UL Urine RBC 21-50 H (0-2) /hpf Urine WBC 0-5 (0-3) /hpf Ur Squamous Epith Cells None seen (Few) /hpf Urine Bacteria None seen /hpf Urine Casts 11-20 Hyaline Casts 3-4 H (None) /lpf Urine Mucus Present /lpf Salicylates Cancelled < 1.0 L Urine Opiates Screen Negative (Negative) Urine Methadone Screen Negative (Negative) Acetaminophen Cancelled Ur Barbiturates Screen Negative (Negative) Ur Phencyclidine Scrn Negative (Negative) Ur Amphetamine Screen Negative (Negative) U Benzodiazepines Scrn Negative (Negative) Urine Cocaine Screen Positive A (Negative) U Cannabinoids Screen Positive A (Negative) Ethyl Alcohol (<10) mg/dL Influenza A (RT-PCR) (Negative) Influenza B (RT-PCR) (Negative) RSV (RT-PCR) (Negative) SARS-CoV-2 RNA (RT-PCR) (Negative) 07/15/24 Range/Units 15:24 WBC (4.5-10.0) K/mm3 RBC (4.6-6.20) M/mm3 Hgb (14.0-18.0) g/dL Hct (42.0-52.0) % MCV (80-100) fl MCH (26-34) pg MCHC (32-36) g/dl RDW (11.5-14.5) % Plt Count (150-375) k/mm3 MPV (7.4-10.4) fl Immature Gran % (Auto) (0-0.5) % Neut % (Auto) (45.5-73.1) % Lymph % (Auto) (18.3-44.2) % Scott % (Auto) (2.6-8.5) % Eos % (Auto) (0-4.4) % Baso % (Auto) (0.2-1.2) % Lymph # (Auto) (0.9-3.2) K/mm3 Scott # (Auto) (0.1-0.6) K/mm3 Eos # (Auto) (0-0.3) K/mm3 Baso # (Auto) (0.0-0.1) K/mm3 Abs Immat Gran (auto) (0.00-0.031) K/mm3 Absolute Neuts (auto) (1.3-6.7) K/mm3 Absolute Nucleated RBC (0.0-0.012) K/mm3 Nucleated RBC % (0.0-0.2) % Sodium (137-145) mmol/L Potassium (3.4-5.0) mmol/L Chloride (98-107) mmol/L Carbon Dioxide (22-30) mmol/L Anion Gap (4-12) mmol/L BUN (9-20) mg/dL Creatinine (0.7-1.3) mg/dL Estim Creat Clear Calc ml/min Estimated GFR (59 - ) Glucose (65-110) mg/dL Calcium (8.4-10.2) mg/dL Total Bilirubin (0.2-1.3) mg/dL AST (17-59) U/L ALT (6-50) U/L Alkaline Phosphatase (38-126) U/L Total Protein (6.3-8.2) g/dL Albumin (3.5-5.1) g/dL TSH (Reflex) (0.465-4.68) uIU/mL Urine Color (Yellow) Urine Appearance (Clear) Urine pH (5.0-9.0) Ur Specific [place] (1.001-1.035) Urine Protein (Negative) mg/dL Urine Glucose (UA) (Negative) mg/dL Urine Ketones (Negative) mg/dL Ur Blood (Man) (Negative) Urine Nitrate (Negative) Urine Bilirubin (Negative) Urine Urobilinogen (<2.0) mg/dL Add Ur Microanalysis Leukocyte Esterase Rfl (Negative) GISSELL/UL Urine RBC (0-2) /hpf Urine WBC (0-3) /hpf Ur Squamous Epith Cells (Few) /hpf Urine Bacteria /hpf Urine Casts Hyaline Casts (None) /lpf Urine Mucus /lpf Salicylates Urine Opiates Screen (Negative) Urine Methadone Screen (Negative) Acetaminophen < 10 L Ur Barbiturates Screen (Negative) Ur Phencyclidine Scrn (Negative) Ur Amphetamine Screen (Negative) U Benzodiazepines Scrn (Negative) Urine Cocaine Screen (Negative) U Cannabinoids Screen (Negative) Ethyl Alcohol < 10 (<10) mg/dL Influenza A (RT-PCR) Negative (Negative) Influenza B (RT-PCR) Negative (Negative) RSV (RT-PCR) Negative (Negative) SARS-CoV-2 RNA (RT-PCR) Negative (Negative) <Keisha Carrasquillo MD - Last Filed: 07/16/24 09:46> ECG Data EKG #1: ECG completion date: 07/15/24 <Dhruv Hernandes MD - Last Filed: 07/15/24 20:44> ECG completion time: 15:08 <Dhruv Hernandes MD - Last Filed: 07/15/24 20:44> EKG Interpretation: normal rate (84), sinus rhythm, no ST changes, normal QRS and normal QT <Dhruv Hernandes MD - Last Filed: 07/15/24 20:44> Discharge Plan Discharge Clinical Impression: Suicidal ideation <Dhruv Hernandes MD - Last Filed: 07/15/24 20:44> Patient Disposition: Psychiatric Hosp <Dhruv Hernandes MD - Last Filed: 07/15/24 20:44> Condition: Stable <Dhruv Hernandes MD - Last Filed: 07/15/24 20:44> Patient Language: Slovenian <Dhruv Hernandes MD - Last Filed: 07/15/24 20:44> Prescriptions: No Action cephalexin 500 mg capsule 500 mg PO QID 7 Days Qty: 28 0RF cephalexin 500 mg capsule 500 mg PO Q6H 5 Days Qty: 20 0RF cefuroxime axetil 500 mg tablet 500 mg PO BID Qty: 20 0RF <Dhruv Hernandes MD - Last Filed: 07/15/24 20:44> Follow-up/Referrals: Shabana Murphy DO [Primary Care Provider] - <Dhruv Hernandes MD - Last Filed: 07/15/24 20:44>
--- NOTE | 2024-07-15 15:22 | PC.NURSE ---
reports he has schizophrenia and has has been out of medication x 1 month. Reports he also use cocaine and fentanyl last used 2 days ago. Reports auditory hallucinatoion that are telling him to shoot people. Reports he has a gun at his mom's house.
[2024-07-15 15:33] LABS: Basophils Percent Auto 0.3 % (0.2-1.2); Eosinophils Percent Auto 0.1 % (0-4.4); Hematocrit 37.8 % (42.0-52.0); Hemoglobin 12.3 g/dL (14.0-18.0); Immature Granulocyte Absolute 0.02 K/mm3 (0.00-0.031); Immature Granulocyte Percent A 0.2 % (0-0.5); Lymphocytes Absolute Auto 0.97 K/mm3 (0.9-3.2); Lymphocytes Percent Auto 10.4 % (18.3-44.2); Mean Corpuscular HGB Conc 32.5 g/dl (32-36); Mean Corpuscular Hemoglobin 28.2 pg (26-34); Mean Corpuscular Volume 86.7 fl (80-100); Mean Platelet Volume 8.4 fl (7.4-10.4); Monocytes Absolute Auto 0.6 K/mm3 (0.1-0.6); Monocytes Percent Auto 6.9 % (2.6-8.5); Neutrophils Absolute Auto 7.7 K/mm3 (1.3-6.7); Neutrophils Percent Auto 82.1 % (45.5-73.1); Platelet Count Result 302 k/mm3 (150-375); Red Blood Count 4.36 M/mm3 (4.6-6.20); Red Cell Distribution Width 13.6 % (11.5-14.5); White Blood Count 9.3 K/mm3 (4.5-10.0)
[2024-07-15 15:47] LABS: Acetaminophen < 10 ug/mL (10-30); Ethanol < 10 mg/dL (<10); Salicylate < 1.0 mg/dL (2-20)
[2024-07-15 15:48] LABS: Add Urine Microscopic? YES; Alanine Aminotransferase 17 U/L (6-50); Albumin Level 4.1 g/dL (3.5-5.1); Alkaline Phosphatase 59 U/L (38-126); Anion Gap 7 mmol/L (4-12); Appearance Urine Clear (Clear); Aspartate Amino Transferase 23 U/L (17-59); Bacteria Urine None Seen /hpf; Bilirubin Urine Negative (Negative); Bilirubin,Total 0.7 mg/dL (0.2-1.3); Blood Urea Nitrogen 19 mg/dL (9-20); Blood Urine Negative (Negative); Calcium 8.9 mg/dL (8.4-10.2); Carbon Dioxide 30 mmol/L (22-30); Chloride 105 mmol/L (98-107); Color Urine Yellow (Yellow); Estimated CRCL calculation 95 ml/min; Estimated Glomerular Filt Rate > 60; Glucose 93 mg/dL (65-110); Glucose Urine UA Negative (Negative); Ketones Urine Trace mg/dL (Negative); Leukocyte Esterase Ur Negative LEU/UL (Negative); Mucus Urine Present /lpf; Need Manual Microscopic Reviewed; Nitrate Urine Negative (Negative); Protein Urine 1+ mg/dL (Negative); RBC Urine 21-50 /hpf (0-2); Sodium 142 mmol/L (137-145); Specific Grav Ur 1.033 (1.001-1.035); Squamous Epithelial Cell Urine None Seen /hpf (Few); WBC Urine 0-5 /hpf (0-3); pH Urine 5.5 (5.0-9.0)
[2024-07-15 16:03] LABS: Barbiturate Screen Urine Negative (Negative); Benzodiazepines Screen Urine Negative (Negative)
[2024-07-15 16:04] LABS: Amphetamine Screen Urine Negative (Negative); Cannabinoid Screen Urine Positive (Negative); Cocaine Screen Urine Positive (Negative); Methadone Screen Urine Negative (Negative); Opiate Screen Urine Negative (Negative); Phencyclidine Screen Urine Negative (Negative)
[2024-07-15 16:08] LABS: Influenza A QL RT-PCR Negative (Negative); Influenza B QL RT-PCR Negative (Negative); RSV RNA, RT-PCR Negative (Negative); SARS-CoV-2 RNA PCR Negative (Negative)
[2024-07-15 16:18] LABS: Thyroid Stimulating Hormone Reflex 0.554 uIU/mL (0.465-4.68)
--- OUTSIDE RECORDS SUMMARY | 2024-07-15 16:21 | XMS_ITS | Clinical Summary ---
Author Organization [facility] Address [address] [place] [address] Care Team Providers Care Research Nurse Practitioner Name Role Phone No, Physician Primary Care Provider [phone] Allergies Active Allergy Reactions Criticality Noted Date [...] interested in rehab or substance use resources. -[place] for substance use cessation -Rehab and other [...] on the patient and his wellbeing. Offered penitentiary to patient but he declined. He did not have any evidence of AVH/RTIS. Did not endorse SI/HI. He is future planning, has history of help seeking and self preservation, and has no thought disorder. He is being discharged to a care home with resources for substance use and grief counseling. -Monitor off psychotropic medications -PRN Zyprexa -Legal: Voluntary - Discharge to care home Resolved Problems Problem Noted Date Diagnosed Date [...] often do you attend chur ch or scientology services? Never 07/19/2022 Do you belong to any clubs o r organizations such as mosque groups, unions, fraternal or athletic groups, or [...] medical care, and heating? Somewhat hard 07/19/2022 [facility] - Occupational Stress [...] place to sleep or slept in a care home (including now)? Yes 07/19/2022 Personal Safety Answer [...] patient's age to complete this topic Insurance IDID CIGNA MEDICARE ADV MEDICARE IDPA IDPA CIGNA MEDICARE ADV Advance Directives For more information, please contact: [phone] * Full Code (Latest Code Status on File) Date Activated Date Inactivated Comments 07/19/2022 4:05 AM 07/19/2022 6:11 PM Care Teams Research Nurse Practitioner Relationship Specialty Start Date End Date No, Physician PCP - General 10/02/17
--- OUTSIDE RECORDS SUMMARY | 2024-07-15 16:21 | XMS_ITS | Clinical Summary ---
Author Organization [facility] Address [facility] [place] [address] Care Team Providers Care Direct Service Provider Name Role Phone None, Provider MD Primary [...] Done Comments Annual Physical 1988 PHQ-2 (Physician [place]) 1997 Hepatitis B Vaccines (4 of 4 - 4-dose series) 04/10/2001 03/27/2001, 02/13/2001, 12/27/1995 Hepatitis C 2003 COVID-19 Vaccine (4 - season) 2023 02/21/2021, 06/14/2020, 05/17/2020 Influenza Adult (#1) 2024 02/08/2022, 01/25/20 21 PHQ-2 (Physician [place]) 04/22/2024 DTaP, Tdap and Td Vaccines (6 [...] complete this topic Insurance MEDICAID Care Teams Direct Service Provider Relationship Specialty Start Date End Date None, Provider, PCP - General UNKNOWN PHYSICIAN SPECIALTY 12/10/22
--- OUTSIDE RECORDS SUMMARY | 2024-07-15 16:21 | XMS_ITS | CONTINUITY OF CARE DOCUMENT ---
Author Name lawrence bravo Address Unknown Organization [facility] Address [address] [place] [address] Phone [phone] Care Team Providers Care Log Operations Coordinator Name Role Phone Carlos Oquendo MD Unavailable [phone] Carlos Oquendo MD Unavailable [phone] INSURANCE PROVIDERS Payer name Policy type / Coverage type [place] red green party ID [facility] [facility] Medicaid 1 [id number] [place] MEDICARE Medicare [id number]
--- OUTSIDE RECORDS SUMMARY | 2024-07-15 16:21 | XMS_ITS | Referral Summary ---
Author Organization [facility] Address [address] [place] [address] Care Team Providers Care Mill Operator Head Name Role Phone No, Physician Primary Care Provider [phone] Allergies Active Allergy Reactions Criticality Noted Date [...] interested in rehab or substance use resources. -DC for substance use cessation -Rehab and other [...] on the patient and his wellbeing. Offered prison to patient but he declined. He did [...] often do you attend chur ch or yarsanism services? Never 07/19/2022 Do you belong to any clubs o r organizations such as anglican groups, unions, fraternal or athletic groups, or [...] medical care, and heating? Somewhat hard 07/19/2022 [facility] - Occupational Stress Questionnaire Answer Date [...] Insurance IDPA CIGNA MEDICARE ADV MEDICARE [place] CIGNA MEDICARE ADV Advance Directives For more information, please contact: [phone] * Full Code (Latest Code Status on File) Date Activated Date Inactivated Comments 07/19/2022 4:05 AM 07/19/2022 6:11 PM Care Teams Mill Operator Head Relationship Specialty Start Date End Date No, Physician PCP - General 10/02/17
--- OUTSIDE RECORDS SUMMARY | 2024-07-15 16:21 | XMS_ITS ---
Author Organization [facility] Address [address] [place] [address] Care Team Providers Care Donor Relations Manager Name Role Phone Claire Chatterjee Primary Care Provider [phone] Heena Lott Unavailable [phone] Hanna Belcher Unavailable [phone] REASON FOR VISIT labs Social History Sex Assigned At : Social History Observation Description Sex Assigned At Male Encounters Encounter Location Date Provider Diagnosis [address] [address] 12/17/2023 Hanna Belcher Plan Of Treatment No Information Progress Notes * Jaden CALDERÓNDOB: [birth year] (39 yo M)Acc No.[id number]:12/17/2023 UNLOCKED PROGRESS NOTE Patient: Jaden GARCIA Provider: Sasha Belcher MSN, SPECIAL EVENTS DRIVER, CONSTRUCTION GRIP-C :1985 A ge:38 Y S ex:Male Date:12/17/2023 Phone: Address:[address], [address], [place], [place] Pcp:Claire Chatterjee Subjective: * Chief Complaints: * 1 . Labs. * Medical History: Objective: * Vitals: Assessment: Plan: * Treatment: * * Electronic signature of Anat Belcher APRN, [id number] on 07/15/2024 at 03:17 PM CDT Sign off status: Pending * Provider: Sasha Belcher, MSN, SPECIAL EVENTS DRIVER, CONSTRUCTION GRIP-C Date: 0 12/17/2023 Generated for Martin plunkett/Kirsten/Howarditting on: 0 07/15/2024 03:17 PM CDT
--- OUTSIDE RECORDS SUMMARY | 2024-07-15 16:21 | XMS_ITS | Encounter Summary ---
Author Organization [facility] Address [address] [place] [address] Care Team Providers Care Analytical Data Miner Name Role Phone No, Physician Primary Care Provider [phone] Encounter Details Date Type Department Care Team (Late st Contact Info) Description 12/04/2011 Orders Only [facility] Health Information Management [address] [place] [address] Scanning, Provider Social History Tobacco Use Types [...] Time COVID19 03/20/2022 03/20/2022 03/30/2022 3:05 AM POLICE DETECTIVE documented as of this encounter Care Teams Analytical Data Miner Relationship Specialty Start Date End Date No, Physician PCP - General 10/02/17 documented as of this encounter
[2024-07-15 17:43] VITALS: BP 94/61; PULSE 84; RESP 16; TEMP 36.6; O2SAT 100
--- NOTE | 2024-07-15 19:03 | PC.NURSE ---
crisis evaluated pt. pt will be voluntary placement. faxed chart to [facility]. they state they will call back after shift change to fax to other facilities.
--- NOTE | 2024-07-15 20:18 | PC.NURSE ---
Chart faxed to both [facility] and [facility].
--- NOTE | 2024-07-15 21:09 | PC.NURSE ---
Received a phone call from [facility] stating they needed additional items on the documentation at [facility] and the chart then faxed back. This completed.
[2024-07-15 23:06] VITALS: BP 117/64; PULSE 80; RESP 18; TEMP 36.8; O2SAT 100
== END 2024-07-15 23:31 ==
PROVIDERS: Family Medicine; Emergency Provider Student in an Organized Health Care Education/Training Program; PCP Family Medicine
DX: R45.851 Suicidal ideations (principal); Z11.52 Encounter for screening for COVID-19; F20.9 Schizophrenia, unspecified; F14.90 Cocaine use, unspecified, uncomplicated; F15.90 Other stimulant use, unspecified, uncomplicated; Z59.00 Homelessness unspecified
CPT/HCPCS: 36415; 80053; 80143; 80179; 80307; 81001; 82077; 84443; 85025; 87637; 93005; 99285